=== PATIENT | male | born 1945 | race Caucasian/White ===

== ENCOUNTER 2019-03-09 16:31 | Observation (INO) | payer OTHER ==
--- OUTSIDE RECORDS SUMMARY | 2019-03-09 16:33 | XMS REPORT | Clinical Summary ---
:[address] [facility] Address [address] [place] [address] Care Team Providers Name Role Phone Mariza Kwan Primary Care Provider Unavailable Allergies No Known Allergies Medications Medication Sig Dispensed Refills Start Date End Date Status baclofen (LIORESAL) 20 Take 20 mg by 0 Active MG tablet mouth 3 (three) times daily. clopidogrel (PLAVIX) 75 Take 75 mg by 0 Active mg tablet mouth daily. HYDROcodone-acetaminophe Take 1 tablet by 0 Active n (NORCO 10-325) 10-325 mouth every 4 mg per tablet (four) hours as needed. 1-2 tablets every 4 hour prn lisinopril Take 20 mg by 0 Active (PRINIVIL,ZESTRIL) 20 MG mouth daily. tablet morphine (MS CONTIN) 100 Take 100 mg by 0 Active MG 12 hr tablet mouth 2 (two) times daily. tamsulosin (FLOMAX) 0.4 Take 0.4 mg by 0 Active mg Cp24 24 hr capsule mouth daily. topiramate (TOPAMAX) 50 Take 50 mg by 0 Active MG tablet mouth every morning. topiramate (TOPAMAX) 25 Take 25 mg by 0 Active MG capsule mouth nightly. dexlansoprazole 60 mg Take 60 mg by 0 Active capsule mouth daily. Active Problems Problem Noted Date Hyperkalemia 01/17/2013 Left kidney mass s/p left nephrectomy, pacreatectomy (tail), splenectomy 01/17 DVT (deep venous thrombosis) 01/16/2013 SOB (shortness of breath) 01/16/2013 Renal mass 12/25/2012 Hypertension Overview: BP WELL CONTROLLED WITH MEDS X 15 YRS Coronary artery disease GERD (gastroesophageal reflux disease) Stroke Overview: during brain surgery. has left sided weakness, slurred speech, left sided facial droop Immunizations Name Dates Previously Given Next Due HiB 01/03/2013 Meningococcal Polysaccharide 01/04/2013 Pneumococcal Polysaccharide (Pneumovax) 01/04/2013 Social History Tobacco Use Types Packs/Day Years Used Date Former Smoker Tobacco Cessation: Counseling Given: No Alcohol Use Drinks/Week oz/Week Comments No Sex Assigned at Date Recorded Not on file Job Start Date Occupation Industry Not on file Not on file Not on file Travel History Travel Start Travel End No recent travel history available. Last Filed Vital Signs Not on file Plan of Treatment Not on file Implants Implanted Type Area Swatcher Device Shelf Model / Identifier Expiration Serial / Date Lot Sealant,Floseal Hemostatic Matrix 10ml - [id number] Cement/F Left: MILLER [id number] / Implanted: Qty: 1 on 12/25/2012 by Roman Edwards MD iller/Ad Abdomen BIOSCIENCE / hesive FORMER FUSION [id number] MEDICAL Results Not on fileafter 03/08/2018 Insurance Payer Benefit Plan / Subscriber ID Type Phone Address Group AETNA - MEDICARE AETNA MEDICARE xxxxxxxx [facility] [phone] [address] [employer] OPEN PLAN [place] [address] [phone] (Work) Advance Directives Patient has advance care planning documents, and code status on file. For more information, please contact:[address] [phone] Code Status Date Activated Date Inactivated Comments Code ONE 01/16/2013 11:51 PM 01/22/2013 7:21 PM All possible means of support , including: cardiac massage, mechanical ventilation, and defibrillation will be used to support life. Code ONE 12/25/2012 10:45 PM 01/04/2013 10:00 PM All possible means of support , including: cardiac massage, mechanical ventilation, and defibrillation will be used to support life.
--- OUTSIDE RECORDS SUMMARY | 2019-03-09 16:34 | XMS REPORT | Summary of Care ---
:1945 Author Organization [facility] Address [address] [place] [id number] Care Team Providers Name Role Phone Genesis Arroyo Primary Care Provider Reason for Visit Reason Comments Pacemaker Check Biotronik device check q 6 months in clinic Encounter Details Date Type Department Care Team Description 01/25/2019 Nurse Visit [facility] Lauren Houston MD [address] [place] [address] [address] [place] [address] Encounter for Cardiology- [place] Visit, [facility] Nurse interrogation of [address] [place] [address] (Primary Dx) [place] [address] Allergies No Known Allergiesdocumented as of this encounter (statuses as of 01/25/2019) Medications Medication Sig Dispensed Refills Start Date End Date Status niacin 100 mg tablet Take 200 mg by 0 Active mouth at bedtime. ascorbic acid, vitamin Take 1,000 mg by 0 Active C, (VITAMIN C) 500 mg mouth daily. tablet coenzyme Q10 100 mg Take 200 mg by 0 Active softgel mouth 2 (two) times daily. PRASTERONE, DHEA, Take 50 mg by 0 Active (DHEA ORAL) mouth daily. omega-3 fatty acids Take 3,000 mg by 0 Active (FISH OIL) capsule mouth daily. melatonin 3 mg tablet Take 1 tablet by 15 tablet 0 01/12/2017 Active mouth at bedtime. lisinopril 5 mg tablet Take 1 tablet by 90 tablet 2 01/14/2017 Active mouth daily. Polyethylene Glycol Take 1 Packet by 30 Packet 5 01/26/2017 Active 3350 17 gram powder mouth as needed for Constipation. triamcinolone Apply to area(s) 454 g 1 03/23/2017 Active acetonide 0.1 % 2 (two) times ointment daily as needed for Rash. topiramate 25 mg Take 3 tablets by 90 tablet 1 02/11/2018 Active tabletIndications: mouth Seizure disorder SEE-INSTRUCTIONS. ELIQUIS 5 mg tablet TAKE 1 TABLET BY 60 tablet 5 07/25/2018 Active MOUTH TWICE DAILY zinc oxide 13 % Apply to area(s) 2 Tube 2 07/27/2018 Active creamIndications: 3 (three) times Health maintenance daily as needed alteration, Type 2 for Diaper diabetes mellitus changes or Rash. without complication, without long-term current use of insulin insulin aspart U-100 inject 5 Units 13.5 mL 1 07/27/2018 Active 100 unit/mL under the skin 3 cartridgeIndications: (three) times Health maintenance daily before alteration, Type 2 meals. diabetes mellitus without complication, without long-term current use of insulin Insulin Use as directed 5 Box 8 07/27/2018 Active Syringe-Needle, Dis Un 0.5 mL 29 gauge x 1/2" SyrgIndications: Health maintenance alteration, Type 2 diabetes mellitus without complication, without long-term current use of insulin lancets 18 gauge Use as directed 90 Each 3 08/03/2018 Active MiscIndications: Type 2 diabetes mellitus without complication, without long-term current use of insulin insulin aspart U-100 inject 5 Units 13.5 mL 1 09/28/2018 Active 100 unit/mL under the skin 3 injectionIndications: (three) times Type 2 diabetes daily before mellitus without meals. complication, without long-term current use of insulin furosemide 20 mg Take 2 tablets by 60 tablet 3 11/16/2018 Active tabletIndications: mouth every Type 2 diabetes morning and mellitus without evening. complication, without long-term current use of insulin, Essential hypertension meclizine 25 mg Take 1 tablet by 30 tablet 1 11/16/2018 Active tabletIndications: mouth 3 (three) Health maintenance times daily as alteration, Type 2 needed for diabetes mellitus Dizziness or without complication, Nausea. without long-term current use of insulin insulin detemir U-100 inject 13 Units 11.7 mL 1 11/16/2018 Active 100 unit/mL under the skin at injectionIndications: bedtime. Type 2 diabetes mellitus without complication, without long-term current use of insulin, Essential hypertension, Health maintenance alteration metoprolol succinate Take 1 tablet by 60 tablet 1 12/13/2018 Active XL 50 mg 24 hr tablet mouth 2 (two) times daily. TAMSULOSIN 0.4 mg 24 TAKE 1 CAPSULE BY 90 capsule 1 12/20/2018 Active hr capsule MOUTH DAILY atorvastatin 40 mg Take 1 tablet by 90 tablet 2 12/25/2018 Active tablet mouth at bedtime. documented as of this encounter (statuses as of 01/25/2019) Active Problems Problem Noted Date Gastroesophageal reflux disease 01/12/2017 Obesity (BMI 30-39.9) 01/12/2017 Atrial fibrillation with RVR 01/12/2017 DVT (deep venous thrombosis), left 08/02/2015 Pain and swelling of left lower leg 07/31/2015 Syncope 05/20/2015 Cerebrovascular accident 05/12/2015 Overview: Overview: during brain surgery. has left sided weakness, slurred speech, left sided facial droop Hypertension 05/12/2015 Overview: Overview: BP WELL CONTROLLED WITH MEDS X 15 YRS Chronic coronary artery disease 05/12/2015 Type 2 diabetes mellitus without complication 05/12/2015 PAF (paroxysmal atrial fibrillation) 05/12/2015 S/P arthroscopy of right knee 01/02/2015 Primary osteoarthritis of right knee 01/02/2015 Renal mass 01/17/2013 documented as of this encounter (statuses as of 01/25/2019) Immunizations Name Administration Dates Next Due Hep B, Adol or Pedi Dosage 01/03/2013 Influenza High Dose 07/27/2018, 04/21/2017, 03/13/2015 Meningococcal Vaccine 01/04/2013 Pneumococcal 13 Conjugate, PCV13 (Prevnar 03/13/2015 13) Pneumococcal Polysaccharide, PPSV23 12/19/2012 (PNEUMOVAX) Tdap 07/27/2018 documented as of this encounter Social History Tobacco Use Types Packs/Day Years Used Date Former Smoker Cigarettes 0.5 3 Smokeless Tobacco: Never Used Comments: last smoked at the age of 6 ! Alcohol Use Drinks/Week oz/Week Comments Yes very occasional etoh use Sex Assigned at Date Recorded Not on file Job Start Date Occupation Industry Not on file Not on file Not on file Travel History Travel Start Travel End No recent travel history available. documented as of this encounter Last Filed Vital Signs Not on filedocumented in this encounter Progress Notes Marah Abdalla RN - 01/25/2019 2:15 PM CDTPatient here for pacemaker check. 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 Report given to MD for review/interpretation. Patient scheduled for f/u as recommended. 86 atrial fibrillation episodes but burden only 6%, longest one day. Patient is taking eliquis for PAF. Scheduled to see Dr. Hughes after this check. documented in this encounter Plan of Treatment Date Type Specialty Care Team Description 02/15/2019 Office Visit Internal Medicine Genesis Arroyo MBBS [address] [place] [address]. [place] [address] 03/22/2019 Office Visit Cardiology Hammad Hughes MD [address] [address] 08/23/2019 Nurse Visit Cardiology Visit, Adc Nurse 11/19/2019 Office Visit Ophthalmology Kimber Herbert [address] [place] [address] Health Maintenance Due Date Last Done Comments FOOT EXAM 09/06/1961 COLONOSCOPY 09/06/1993 Zoster Recombinant Vaccine 09/06/1993 (SHINGRIX) (1 of 2) Medicare Wellness Visit 09/06/2008 URINE MICROALBUMIN 05/04/2016 05/04/2015 INFLUENZA VACCINE 02/24/2019 07/27/2018, 04/21/2017, 03/13/2015 HgA1C 05/19/2019 11/16/2018, 07/27/2018, 01/12/2017, Additional history exists CREATININE (SERUM) 09/29/2019 09/28/2018, 08/30/2018, 11/24/2017, Additional history exists LDL-C 09/29/2019 09/28/2018, 01/12/2017, 04/22/2015 EYE EXAM 11/17/2019 11/16/2018, 11/16/2018 DTaP,Tdap,and Td Vaccines (2 - 07/27/2028 07/27/2018 Td) PNEUMOCOCCAL VACCINES 65+ Completed 03/13/2015, 12/19/2012 LUNG CANCER SCREEN: Recommended Discontinued for age 55-80 with 30 + pack year history documented as of this encounter Results Not on filedocumented in this encounter Visit Diagnoses Diagnosis Encounter for interrogation of cardiac pacemaker - Primary Fitting and adjustment of cardiac pacemaker documented in this encounter Insurance Payer Benefit Plan / Subscriber ID Effective Dates Phone Address Type Group HUMANA - HUMANA [id number] 2016-Presen Medicare Adv MANAGED MEDICARE t S MEDICARE [phone] [id number] (Work) documented as of this encounter
--- OUTSIDE RECORDS SUMMARY | 2019-03-09 16:34 | XMS REPORT ---
:1945 Author Organization [facility] Address [address] [place] [address] [address] [place] [address] Care Team Providers Name Role Phone Unavailable Unavailable Unavailable Problems This patient has no known problems. Allergies, Adverse Reactions, Alerts This patient has no known allergies or adverse reactions. Medications This patient has no known medications.
--- OUTSIDE RECORDS SUMMARY | 2019-03-09 16:34 | XMS REPORT | Summary of Care ---
:1945 Author Organization [facility] Address [address] [place] [address] Care Team Providers Name Role Phone Genesis Arroyo Primary Care Provider Reason for Visit Reason Comments Refill Request Encounter Details Date Type Department Care Team Description 02/12/2019 Refill [facility] Cardiology- Hammad Hughes MD Refill Request [address], [address] [place] [address] [place] [address] Allergies No Known Allergiesdocumented as of this encounter (statuses as of 02/15/2019) Medications Medication Sig Dispensed Refills Start Date End Date Status niacin 100 mg Take 200 mg by 0 Active tablet mouth at bedtime. ascorbic acid, Take 1,000 mg 0 Active vitamin C, (VITAMIN by mouth daily. C) 500 mg tablet coenzyme Q10 100 mg Take 200 mg by 0 Active softgel mouth 2 (two) times daily. PRASTERONE, DHEA, Take 50 mg by 0 Active (DHEA ORAL) mouth daily. omega-3 fatty acids Take 3,000 mg 0 Active (FISH OIL) capsule by mouth daily. melatonin 3 mg Take 1 tablet 15 tablet 0 01/12/2017 Active tablet by mouth at bedtime. lisinopril 5 mg Take 1 tablet 90 tablet 2 01/14/2017 Active tablet by mouth daily. Polyethylene Glycol Take 1 Packet 30 Packet 5 01/26/2017 Active 3350 17 gram powder by mouth as needed for Constipation. triamcinolone Apply to 454 g 1 03/23/2017 Active acetonide 0.1 % area(s) 2 (two) ointment times daily as needed for Rash. topiramate 25 mg Take 3 tablets 90 tablet 1 02/11/2018 Active tabletIndications: by mouth Seizure disorder SEE-INSTRUCTION S. ELIQUIS 5 mg tablet TAKE 1 TABLET 60 tablet 5 07/25/2018 Active BY MOUTH TWICE DAILY zinc oxide 13 % Apply to 2 Tube 2 07/27/2018 Active creamIndications: area(s) 3 Health maintenance (three) times alteration, Type 2 daily as needed diabetes mellitus for Diaper without changes or complication, Rash. without long-term current use of insulin insulin aspart inject 5 Units 13.5 mL 1 07/27/2018 Active U-100 100 unit/mL under the skin cartridgeIndication 3 (three) times s: Health daily before maintenance meals. alteration, Type 2 diabetes mellitus without complication, [...] long-term current use of insulin insulin aspart inject 5 Units 13.5 mL 1 09/28/2018 Active U-100 100 unit/mL under the skin injectionIndication 3 (three) times s: Type 2 diabetes daily before mellitus without meals. complication, without long-term current use of insulin furosemide 20 mg Take 2 tablets 60 tablet 3 11/16/2018 Active tabletIndications: by mouth every Type 2 diabetes morning and mellitus without evening. complication, without long-term current use of insulin, Essential hypertension meclizine 25 mg Take 1 tablet 30 tablet 1 11/16/2018 Active tabletIndications: by mouth 3 Health maintenance (three) times alteration, Type 2 daily as needed diabetes mellitus for Dizziness without or Nausea. complication, without long-term current use of insulin insulin detemir inject 13 Units 11.7 mL 1 11/16/2018 Active U-100 100 unit/mL under the skin injectionIndication at bedtime. s: Type 2 diabetes mellitus without complication, without long-term current use of insulin, Essential hypertension, Health maintenance alteration TAMSULOSIN 0.4 mg TAKE 1 CAPSULE 90 capsule 1 12/20/2018 Active 24 hr capsule BY MOUTH DAILY atorvastatin 40 mg Take 1 tablet 90 tablet 2 12/25/2018 Active tablet by mouth at bedtime. morphine sulfate Take 100 mg by 0 Active (MORPHINE ORAL) mouth every morning. morphine sulfate Take 60 mg by 0 Active (MORPHINE ORAL) mouth at bedtime. METOPROLOL TAKE 1 TABLET 60 tablet 3 02/15/2019 Active SUCCINATE XL 50 mg BY MOUTH 2 24 hr tablet TIMES DAILY metoprolol Take 1 tablet 60 tablet 1 12/13/2018 Discontinued succinate XL 50 mg by mouth 2 9 24 hr tablet (two) times daily. documented as of this encounter (statuses as of 02/15/2019) Active Problems Problem Noted Date Gastroesophageal reflux [...] as of this encounter (statuses as of 02/15/2019) Immunizations Name Administration Dates Next Due Heamophilus Influenza B 01/03/2013 Hep B, Adol or Pedi Dosage 01/03/2013 [...] Signs Not on filedocumented in this encounter Plan of Treatment Date Type Specialty Care Team Description 03/22/2019 Office Visit Cardiology Hammad Hughes MD [address] [address] 04/19/2019 Office Visit Internal Medicine Genesis Arroyo MBBS [address] [place] [address]. [place] [address] 08/23/2019 Nurse Visit Cardiology Visit, Adc Nurse 11/19/2019 Office Visit Ophthalmology Kimber Herbert [address] [place] [address] Health Maintenance Due Date Last Done Comments FOOT EXAM 09/06/1961 COLONOSCOPY 09/06/1993 Zoster Recombinant Vaccine 09/06/1993 (SHINGRIX) (1 of 2) Medicare Wellness Visit 09/06/2008 URINE MICROALBUMIN 05/04/2016 05/04/2015 INFLUENZA VACCINE (#1) 2019 07/27/2018, 04/21/2017, 03/13/2015 HgA1C 05/19/2019 11/16/2018, 07/27/2018, [...] Results Not on filedocumented in this encounter Insurance Payer Benefit Plan / Subscriber ID Effective Dates Phone Address Type Group HUMANA - HUMANA [id number] 2016-Presen Medicare Adv MANAGED MEDICARE t S MEDICARE documented as of this encounter
--- OUTSIDE RECORDS SUMMARY | 2019-03-09 16:34 | XMS REPORT | Summary of Care ---
:1945 Author Organization [facility] Address [address] [place] [address] Care Team Providers Name Role Phone Genesis Arroyo Primary Care Provider Reason for Visit Reason Comments Pacemaker Check Biotronik device check q 6 months in clinic Encounter Details Date Type Department Care Team Description 01/25/2019 Nurse Visit [facility] Lauren Houston MD [address] [place] [address] [address] [place] [address] Encounter for Cardiology- [place] Visit, [facility] Nurse interrogation of [address] [place] [address], [address] (Primary Dx) [place] [address] Allergies No Known Allergiesdocumented as of this encounter (statuses as of 01/25/2019) Medications Medication Sig Dispensed Refills Start Date End Date Status niacin 100 mg tablet Take 200 mg by 0 Active mouth at bedtime. ascorbic acid, vitamin Take 1,000 mg by 0 Active C, (VITAMIN C) 500 mg mouth daily. tablet coenzyme Q10 100 mg Take 400 mg by 0 Active softgel mouth 2 [...] PM CDTPatient here for pacemaker check. 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 Report given to MD for review/interpretation. Patient scheduled for f/u as recommended. 86 atrial fibrillation episodes but burden only 6%, longest one day. Patient is taking eliquis for PAF. Scheduled to see Dr. Hughes after this check. documented in this encounter Plan of Treatment Date Type Specialty Care Team Description 01/25/2019 Office Visit Cardiology Hammad Hughes MD [address] [address] 02/15/2019 Office Visit Internal Medicine Genesis Arroyo MBBS [address] [place] [address]. [place] [address] 08/23/2019 Nurse Visit Cardiology Visit, Adc Nurse 11/19/2019 Office Visit Ophthalmology Kimber Herbert [address] [place] [address] Health Maintenance Due Date Last [...] Phone Address Type Group HUMANA - HUMANA [id number] 2016-Presen Medicare Adv MANAGED MEDICARE t S MEDICARE [phone] (Work) documented as of this encounter
--- OUTSIDE RECORDS SUMMARY | 2019-03-09 16:34 | XMS REPORT | Summary of Care ---
:1945 Author Organization [facility] Address [address] [place] [address] Care Team Providers Name Role Phone Genesis Arroyo [facility] Primary Care Provider Encounter Details Date Type Department Care Team Description 01/25/2019 Orders Only [facility] Doctor Unassigned, No [address] [facility] Name [place] [id number] [address] [place] [id number] Allergies No Known Allergiesdocumented as of this encounter (statuses as of 01/29/2019) Medications Medication Sig Dispensed Refills Start Date [...] 2 12/25/2018 Active tablet mouth at bedtime. morphine sulfate Take 100 mg by 0 Active (MORPHINE ORAL) mouth every morning. morphine sulfate Take 60 mg by 0 Active (MORPHINE ORAL) mouth at bedtime. documented as of this encounter (statuses as of 01/29/2019) Active Problems Problem Noted Date Gastroesophageal reflux [...] as of this encounter (statuses as of 01/29/2019) Immunizations Name Administration Dates Next Due Hep [...] Office Visit Internal Medicine Genesis Arroyo MBBS [address] [facility] [place] [address] 03/22/2019 Office Visit Cardiology Hammad Hughes MD [address] [place] [address] [place] [phone] 08/23/2019 Nurse Visit Cardiology Visit, Adc Nurse 11/19/2019 Office Visit Ophthalmology iKmber Herbert [address] [place] [address] [phone] Health Maintenance Due Date Last Done Comments [...] year history documented as of this encounter Procedures Procedure Name Priority Date/Time Associated Diagnosis Comments EP DEVICE CHECK Routine 01/25/2019 12:01 AM CDT documented in this encounter Results Not on filedocumented in this encounter Insurance Payer Benefit Plan / Subscriber ID Effective Dates Phone Address Type Group HUMANA - HUMANA [id number] 2016-Presen Medicare Adv MANAGED MEDICARE t FFS MEDICARE documented as of this encounter
--- OUTSIDE RECORDS SUMMARY | 2019-03-09 16:34 | XMS REPORT | Summary of Care ---
:1945 Author Organization [facility] [employer] Address [address] [place] [address] Care Team Providers Name Role Phone Genesis Arroyo Primary Care Provider Reason for Visit Reason Comments Follow-up 6mo/Same Day PMC follow up. Ekg Done today in office Encounter Details Date Type Department Care Team Description 01/25/2019 Office Visit [facility] Hammad Hughes PAF (paroxysmal atrial fibrillation) (Primary Dx); Cardiology- Daniel Watkins MD Essential hypertension; [facility] [address] Dyslipidemia; Drive, [address] Cerebrovascular accident (CVA), [place] [address] [phone] Allergies No Known Allergiesdocumented as of this encounter (statuses as of 02/17/2019) Medications Medication Sig Dispensed Refills Start Date [...] 0 Active (MORPHINE ORAL) mouth at bedtime. metoprolol Take 1 tablet 60 tablet 1 12/13/2018 Discontinued succinate XL 50 mg by mouth 2 9 24 hr tablet (two) times daily. documented as of this encounter (statuses as of 02/17/2019) Active Problems Problem Noted Date Gastroesophageal reflux [...] as of this encounter (statuses as of 02/17/2019) Immunizations Name Administration Dates Next Due Heamophilus [...] of this encounter Last Filed Vital Signs Vital Sign Reading Time Taken Comments Blood Pressure 108/70 01/25/2019 2:46 PM CDT Pulse 104 01/25/2019 2:46 PM CDT Temperature - - Respiratory Rate - - Oxygen Saturation - - Inhaled Oxygen Concentration - - Weight 111.1 kg (245 lb) 01/25/2019 2:46 PM CDT Height 185.4 cm (6' 1") 01/25/2019 2:46 PM CDT Body Mass Index 32.32 01/25/2019 2:46 PM CDT documented in this encounter Progress Notes Hammad Hughes MD - 01/25/2019 3:00 PM CDT [facility] Cardiology Consult Note Patient: Abhay Cotter Date of : 1945 Primary Care Physician: Genesis Arroyo CHIEF COMPLAINT: Follow up History of Present Illness: Abhay Cotter is a 73-year-old male patient who presented to the office to follow up for CAD and PAF. Patient is currently here by with his son. Patient is on a wheelchair. No new cardiac complaints noted. BOSWELL NYHA Class 2-3. Compliant with medications as per the son. Currently on Eliquis. No bleeding or side effects reported. His prior cardiac history significant for underlying history of atrial fibrillation status post cardioversion and evidence of sinus node dysfunction or AV conduction disease on pacemaker. No history of exertional chest pain. No chest pain at rest. No PND or orthopnea. No pedal edema. No exertional palpitations or palpitations at rest. No syncopal attacks. In 2012, he was noted to have atrial fibrillation underwent cardioversion and he was put on Pradaxa for some time. It seems talking to the patient and his son that is Pradaxa was changed since it was interacting with one of his medicine that he was taking at the time. Currently he is not on any anticoagulation. He also does history of TIA around that time also. This MRI that was recently done did notshow any evidence of stroke other than the previous episode that he had . Previous Cardiac Studies: EKG 11.24.2017 done in the office today was reviewed which atrial paced ventricle paced rhythm. TTE Preserved LV systolic and diastolic function. Biatrial enlargement. Mild pulmonary hypertension. DSE Normal LV systolic function at baseline. Normal hemodynanmic response. Adequate inotropic response. Adequate chronotropic response. This was a negative stress echocardiogram for inducible ischemic wall motion abnormality. At peak stress, functional rate-related tachycardia with aberrant conduction (RBBB and occasional NSVT), maximum HR 141.. Echo 12/2017 Interpretation Summary A two-dimensional transthoracic echocardiogram with M-mode and Doppler was performed. Compared to prior study, changes are noted. There is mild concentric left ventricular hypertrophy. The overall left ventricular function is normal. The right ventricular systolic function is mildly reduced. The left atrium is mildly dilated. Insufficient Tricuspid regurgitation jet to estimate RVSP. Device 12/2017 Arrhythmias: Atrial burden: 8% 9894 mode switches. Most recent: 12/31/2017. Longest: 10/10/2017: 7 days. Normal functioning device and leads. ECG Atrial fibrillation with rapid ventricular response Nonspecific ST abnormality Abnormal ECG PAST MEDICAL HISTORY Past Medical History: Diagnosis Date Atrial fibrillation 2012 s/p ablation Chronic pain disorder GERD (gastroesophageal reflux disease) H/O splenectomy History of DVT of lower extremity RLE ~2012 HTN (hypertension) Hydrocephalus 1970 2/2 a fall Seizure disorder Stroke 1970 2/2 to a neurological procedure for hydrocephalus Past Surgical History: Procedure Laterality Date CEREBROSPINAL FLUID SHUNT INSERTION 1970 CHOLECYSTECTOMY NEPHRECTOMY 2012 PANCREATECTOMY 2012 partial SPLENECTOMY 2013 STRABISMUS SURGERY (SHX) Family History Problem Relation Age of Onset Heart Mother chf Heart Mother HTN Cancer Father lung cancer SOCIAL HISTORY Social History Socioeconomic History Marital status: Spouse name: Not on file Number of children: Not on file Years of education: Not on file Highest education level: Not on file Occupational History Not on file Social Needs Financial resource strain: Not on file Food insecurity: Worry: Not on file Inability: Not on file Transportation needs: Medical: Not on file Non-medical: Not on file Tobacco Use Smoking status: Former Smoker Packs/day: 0.50 Years: 3.00 Pack years: 1.50 Types: Cigarettes Smokeless tobacco: Never Used Tobacco comment: last smoked at the age of 6 ! Substance and Sexual Activity Alcohol use: Yes Comment: very occasional etoh use Drug use: No Sexual activity: Not on file Lifestyle Physical activity: Days per week: Not on file Minutes per session: Not on file Stress: Not on file Relationships Social connections: Talks on phone: Not on file Gets together: Not on file Attends jew service: Not on file Active member of club or organization: Not on file Attends meetings of clubs or organizations: Not on file Relationship status: Not on file Intimate partner violence: Fear of current or ex partner: Not on file Emotionally abused: Not on file Physically abused: Not on file Forced sexual activity: Not on file Other Topics Concern Not on file Social History Narrative , lived with son in [place]. 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 ALLERGIES No Known Allergies MEDICATIONS Patient's Medications START taking these medications No medications on file CONTINUE taking these medications which have NOT CHANGED ASCORBIC ACID, VITAMIN C, (VITAMIN C) 500 MG TABLET Take 1,000 mg by mouth daily. ATORVASTATIN 40 MG TABLET Take 1 tablet by mouth at bedtime. COENZYME Q10 100 MG SOFTGEL Take 200 mg by mouth 2 (two) times daily. ELIQUIS 5 MG TABLET TAKE 1 TABLET BY MOUTH TWICE DAILY FUROSEMIDE 20 MG TABLET Take 2 tablets by mouth every morning and evening. INSULIN ASPART U-100 100 UNIT/ML CARTRIDGE inject 5 Units under the skin 3 ( three) times daily before meals. INSULIN ASPART U-100 100 UNIT/ML INJECTION inject 5 Units under the skin 3 ( three) times daily before meals. INSULIN DETEMIR U-100 100 UNIT/ML INJECTION inject 13 Units under the skin at bedtime. INSULIN SYRINGE-NEEDLE, DIS UN 0.5 ML 29 GAUGE X 1/2" SYRG Use as directed LANCETS 18 GAUGE MISC Use as directed LISINOPRIL 5 MG TABLET Take 1 tablet by mouth daily. MECLIZINE 25 MG TABLET Take 1 tablet by mouth 3 (three) times daily as needed for Dizziness or Nausea. MELATONIN 3 MG TABLET Take 1 tablet by mouth at bedtime. MORPHINE SULFATE (MORPHINE ORAL) Take 100 mg by mouth every morning. MORPHINE SULFATE (MORPHINE ORAL) Take 60 mg by mouth at bedtime. NIACIN 100 MG TABLET Take 200 mg by mouth at bedtime. OMEGA-3 FATTY ACIDS (FISH OIL) CAPSULE Take 3,000 mg by mouth daily. POLYETHYLENE GLYCOL 3350 17 GRAM POWDER Take 1 Packet by mouth as needed for Constipation. PRASTERONE, DHEA, (DHEA ORAL) Take 50 mg by mouth daily. TAMSULOSIN 0.4 MG 24 HR CAPSULE TAKE 1 CAPSULE BY MOUTH DAILY TOPIRAMATE 25 MG TABLET Take 3 tablets by mouth SEE-INSTRUCTIONS. TRIAMCINOLONE ACETONIDE 0.1 % OINTMENT Apply to area(s) 2 (two) times daily as needed for Rash. ZINC OXIDE 13 % CREAM Apply to area(s) 3 (three) times daily as needed for Diaper changes or Rash. START taking Modified Medications as Prescribed Modified Medication Previous Medication METOPROLOL SUCCINATE XL 50 MG 24 HR TABLET metoprolol succinate XL 50 mg 24 hr tablet TAKE 1 TABLET BY MOUTH 2 TIMES DAILY Take 1 tablet by mouth 2 (two) times daily. STOP taking these medications No medications on file REVIEW OF SYSTEMS: Comprehensive 10-system review was conducted and were negative except for what' s noted in the HPI. The following systems were reviewed: Constitutional, cardiovascular, respiratory, gastrointestinal, genitourinary, musculoskeletal, neurologic, psychiatric, endocrinological, and hematological. PHYSICAL EXAMINATION: Vitals: 01/25/19 1446 BP: 108/70 BP Location: Right arm Patient Position: Sitting BP CUFF SIZE: Adult Large Pulse: 104 Weight: 245 lb (111.1 kg) Height: 6' 1" (1.854 m) General: no apparent distress HEENT: normocephalic atraumatic Neck: supple, no lymphadenopathy, no bruits, no JVD Lungs: clear to auscultation bilaterally. No wheezes or rhonchi. Cardio: Iregular rate and rhythm, S1&S2 normal, no murmurs, rubs or gallops Abdomen: soft; non-tender; non-distended; normoactive bowel sounds. : not examined Rectal: not examined Extremities: no clubbing, cyanosis. Bilateral leg edema. Skin: no rashes, no visible lesions. Neuro: no gross focal deficits ASSESSMENT/PLAN 1. PAF (paroxysmal atrial fibrillation) 2. Essential hypertension 3. Dyslipidemia 4. Cerebrovascular accident (CVA), unspecified mechanism Clinically stable from cardiac stand point. No new cardiac complaints noted. ECG done in the office was reviewed with him and his son. Reviewed device check. PAF: on Toprol XL 50 mg BiD. If BP acceptable > 110/70, increase Toprol XL 75 mg BiD. On Eliquis 5 mg BiD. Dyslipidemia: on Lipitor 40 mg daily. Chronic diastolic HF: on lasix 40 BiD. HTN: on lisinopril 5 daily. T2DM: Follows PCP Follow up in 6 week. Rpt ECG at visit. If still in persistent atrial fibrillation, then may be revisit [facility] after stress test. Patient's diease process and its evaluation and treatment were discussed. We discussed each of for cardio vascular-related problems and discussed long-term goals and expectations for the each problem.I reviewed each of the cardiac medications in detail. Reviewed the medication with patient in detail recommended to continue taking the current medications without further changes other than changes mentioned above. Recommended goal BP < 140/90 consistently, LDL << 100, HbA1c < 6.5. Recommended, explained and stressed the importance of healthy eating habits and exercises and lifestyle modifications Follow up as planned is predicated on symptoms stability and/or acceptable test results. Patient is urged to call in sooner should problems arise or if there is no improvement in cardiac symptoms. ER warning signs and symptoms explained and patient verbalized understanding. My diagnostic impression and treatment plans were discussed at length with the patient and family member present. All side effects as well as drug-drug interactions and risks discussed at length. Ample opportunity was offered and encouraged to ask questions during this visit and patient and his son appreciated the answers given by me and verbzalised statisfcation in the answers given. We reviewed the [place] [employer] recommendations for reduction of overall cardio vascular risk. The importance of monitoring the blood pressure carefully both at home on regular basis along with other physicians appointment was stressed in detail. In addition we discussed target LDL levels for optimal risk reduction. It was advised that to daily physical activity be performed with 30 minutes of sustained exercise for both cardio vascular fitness and improvement for generalized medical health and well-being. Thank you for allowing us to participate in the care of Abhay Cotter. If you have any questions or concerns please feel free to call our office at [phone]. I would be happy to be of further assistance for Abhay Cotter wellbeing. Jaron Hughes MD Pecan Huller, Division of Cardiology [facility] documented in this encounter Plan of Treatment Date Type Specialty Care Team Description 03/22/2019 Office Visit Cardiology Hammad Hughes MD [address] [place] [address] [place] [phone] 04/19/2019 Office Visit Internal Medicine Genesis Arroyo MBBS [address] [place] [address]. [place] [phone] 08/23/2019 Nurse Visit Cardiology Visit, Adc Nurse 11/19/2019 Office Visit Ophthalmology Kimber Herbert [address] [place] [address] Health Maintenance Due Date Last [...] Procedure Name Priority Date/Time Associated Diagnosis Comments EKG-12 LEAD Routine 01/25/2019 2:51 PM CDT documented in this encounter Results Not on filedocumented in this encounter Visit Diagnoses Diagnosis PAF (paroxysmal atrial fibrillation) - Primary Atrial fibrillation Essential hypertension Unspecified essential hypertension Dyslipidemia Other and unspecified hyperlipidemia Cerebrovascular accident (CVA), unspecified mechanism documented in this encounter Insurance Payer Benefit Plan / Subscriber ID Effective Dates Phone Address Type Group HUMANA - HUMANA [id number] 2016-Presen Medicare Adv MANAGED MEDICARE t FFS MEDICARE [phone] [id number] (Work) documented as of this encounter
--- OUTSIDE RECORDS SUMMARY | 2019-03-09 16:35 | XMS REPORT | Summary of Care ---
:1945 Author Organization [facility] Address [address] [place] [address] Care Team Providers Name Role Phone Genesis Arroyo Primary Care Provider Reason for Visit Reason Comments Pacemaker Check Biotronik device check q 6 months in clinic Encounter Details Date Type Department Care Team Description 01/25/2019 Nurse Visit [facility] Lauren [place] MD [address] [place] [address] [address] [place] [address] Encounter for interrogation of cardiac pacemaker (Primary Dx ); Cardiology- [place] Visit, Adc Nurse PAF (paroxysmal atrial fibrillation); [address] [place] [address], [address] [place] [address] Allergies No Known Allergiesdocumented as of this encounter (statuses as of 03/08/2019) Medications Medication Sig Dispensed Refills Start Date [...] 12/25/2018 Active tablet by mouth at bedtime. metoprolol Take 1 tablet 60 tablet 1 12/13/2018 Discontinued succinate XL 50 mg by mouth 2 9 24 hr tablet (two) times daily. documented as of this encounter (statuses as of 03/08/2019) Active Problems Problem Noted Date Gastroesophageal reflux [...] as of this encounter (statuses as of 03/08/2019) Immunizations Name Administration Dates Next Due Heamophilus [...] on filedocumented in this encounter Progress Notes Hammad Hughes MD - 01/25/2019 2:15 PM CDTEP Cardiac Device Check Evaluation performed: Interrogation and programing dual lead PPM Device: Biotronik Eluna 8 DRT Mode: DDD 60-130 bpm Battery: 7 yrs Atrial Lead: Sensin.2 mV Impedance: 526 Ohms A pacing % 79 % Right Ventricular Lead: Sensin mV Impedance: 702 Ohms Threshold: 0.8 V @ 0.4 ms V pacing % 2 % Arrhythmias: 86 atrial fibrillation episodes burden 6% Recommendations: Normal functioning device and leads. Follow up in 6 months. Jaron Hughes MD [employer], Division of Cardiology [facility] Marah giordano RN - 01/25/2019 2:15 PM CDTPatient here for pacemaker check. Biotronik signs sales representative at bedside and performed download. [...] Hughes MD [address] [place] [address] [place] [phone] 04/19/2019 Office Visit Internal Medicine Genesis Arroyo MBBS [address] [place] [address]. [place] [address] 08/23/2019 Nurse Visit Cardiology Visit, Adc Nurse 11/19/2019 Office Visit Ophthalmology Kimber Herbert [address] [place] [address] [phone] Health Maintenance Due Date Last Done Comments [...] Primary Fitting and adjustment of cardiac pacemaker PAF (paroxysmal atrial fibrillation) Atrial fibrillation Chronic coronary artery disease Coronary atherosclerosis of unspecified type of vessel, [place] or graft documented in this encounter Insurance Payer Benefit Plan / Subscriber ID Effective Dates Phone Address Type Group HUMANA - HUMANA [id number] 2016-Presen Medicare Adv MANAGED MEDICARE t FFS MEDICARE (Work) documented as of this encounter
--- OUTSIDE RECORDS SUMMARY | 2019-03-09 16:35 | XMS REPORT | Summary of Care ---
:1945 Author Organization [facility] Address [address] [place] [address] Care Team Providers Name Role Phone Genesis Arroyo [facility] Primary Care Provider Encounter Details Date Type Department Care Team Description 02/21/2019 Orders Only [facility] Doctor Unassigned, No [address] [facility] [place] [place] Name [place] [phone] [place] [phone] Allergies No Known Allergiesdocumented as of this encounter (statuses as of 02/27/2019) Medications Medication Sig Dispensed Refills Start Date [...] hypertension, Health maintenance alteration TAMSULOSIN 0.4 mg 24 TAKE 1 CAPSULE BY 90 capsule 1 12/20/2018 Active hr capsule MOUTH DAILY atorvastatin 40 mg Take 1 tablet by 90 tablet 2 12/25/2018 Active tablet mouth at bedtime. morphine sulfate Take 100 mg by 0 Active (MORPHINE ORAL) mouth every morning. morphine sulfate Take 60 mg by 0 Active (MORPHINE ORAL) mouth at bedtime. METOPROLOL SUCCINATE TAKE 1 TABLET BY 60 tablet 3 02/15/2019 Active XL 50 mg 24 hr tablet MOUTH 2 TIMES DAILY documented as of this encounter (statuses as of 02/27/2019) Active Problems Problem Noted Date Gastroesophageal reflux [...] as of this encounter (statuses as of 02/27/2019) Immunizations Name Administration Dates Next Due Heamophilus [...] Hughes MD [address] [place] [address] [place] [phone] 04/19/2019 Office Visit Internal Medicine Genesis Arroyo MBBS [address] [place] [address]. [place] [phone] 08/23/2019 Nurse Visit Cardiology Visit, Adc Nurse 11/19/2019 Office Visit Ophthalmology Kimber Herbert [address] [place] [address] Health Maintenance Due Date Last [...] Procedure Name Priority Date/Time Associated Diagnosis Comments MEDICATION CORRESPONDENCE Routine 02/21/2019 12:01 AM CDT documented in this encounter Results Not on filedocumented in this encounter Insurance Payer Benefit Plan / Subscriber ID Effective Dates Phone Address Type Group HUMANA - HUMANA [id number] 2016-Presen Medicare Adv MANAGED MEDICARE t FFS MEDICARE documented as of this encounter
--- OUTSIDE RECORDS SUMMARY | 2019-03-09 16:35 | XMS REPORT | Summary of Care ---
:1945 Author Organization [facility] Address [address] [place] [address] Care Team Providers Name Role Phone Genesis Arroyo Primary Care Provider Reason for Visit Reason Comments Assessment Encounter Details Date Type Department Care Team Description 03/07/2019 Telephone [facility] Internal Genesis Arroyo MBBS Assessment Medicine- [address] [place] [address] [address], [address] [phone] [facility] [place] [address] Allergies No Known Allergiesdocumented as of this encounter (statuses as of 03/07/2019) Medications Medication Sig Dispensed Refills Start Date [...] as of this encounter (statuses as of 03/07/2019) Active Problems Problem Noted Date Gastroesophageal reflux [...] as of this encounter (statuses as of 03/07/2019) Immunizations Name Administration Dates Next Due Heamophilus [...] Hughes MD [address] [place] [address] [place] [phone] 04/19/2019 Office Visit Internal Medicine Genesis Arroyo MBBS [address] [place] [address]. [place] [address] 08/23/2019 Nurse Visit Cardiology Visit, Adc Nurse 11/19/2019 Office Visit Ophthalmology Kimber Herbert [address] [place] [address] Health Maintenance Due Date Last [...] Phone Address Type Group HUMANA - HUMANA [id number] 2016-Presen Medicare Adv MANAGED MEDICARE t FFS MEDICARE documented as of this encounter
[2019-03-09] MEDS ORDERED: FENTANYL CITR 100 MCG/2 ML ONE (17:05)
--- NOTE | 2019-03-09 17:43 | RAD REPORT ---
EXAM DESCRIPTION: RAD - Pelvis - 03/09/2019 5:30 pm CLINICAL HISTORY: Pelvic pain status post injury FINDINGS: No fracture or dislocation is seen. Osteoporosis If the patient continues to have symptoms to suggest an occult fracture then MRI would be recommended
--- NOTE | 2019-03-09 17:44 | RAD REPORT ---
EXAM DESCRIPTION: RAD - Hip Left 2 View - 03/09/2019 5:30 pm CLINICAL HISTORY: Left hip pain status post injury FINDINGS: No fracture or dislocation is seen. Osteoporosis If the patient continues to have symptoms to suggest an occult fracture MRI would be recommended.
--- NOTE | 2019-03-09 18:00 | ER ---
Nurse's Notes [facility] Name: Abhay Cotter Age: 73 yrs Sex: Male : 1945 Arrival Date: 03/09/2019 Time: 16:35 Bed 5 Private MD: Diagnosis: Hematoma Left gluteal muscle;Intractable Pain Presentation: 03/09 16:27 Presenting complaint: EMS states: s/p fall about 2-3 days ago; was seen at a local sv clinic and xrays done, fx right hand and pelvis xray were done but unknown results. Reports increased pain to the left hip. Pt uses a wheelchair to get around at home. 16:35 Transition of care: patient was not received from another setting of care. Onset of tw2 symptoms was March 09, 2019. Risk Assessment: Do you want to hurt yourself or someone else? Patient reports no desire to harm self or others. Initial Sepsis Screen: Does the patient meet any 2 criteria? No. Patient's initial sepsis screen is negative. Does the patient have a suspected source of infection? No. Patient's initial sepsis screen is negative. Care prior to arrival: Placed on backboard. 16:35 Acuity: SAWYER 3 tw2 16:35 Method Of Arrival: EMS: [facility] tw2 Historical: - Allergies: 16:39 No Known Drug Allergies; tw2 - Home Meds: 16:44 oxymorphone 5 mg oral tab [Active]; MS contin ER 100 mg am and 60 mg pm [Active]; sv Eliquis 5 mg oral tab [Active]; atorvastatin 40 mg oral tab [Active]; Lasix 20 mg Oral tab QID [Active]; metoprolol succinate 50 mg oral Tb24 [Active]; - PMHx: 16:44 Seizures; Diabetes - IDDM; Back pain; sv - PSHx: 16:39 Cholecystectomy; KIDNEY REMOVED; SPLEEN REMOVED; BRAIN SX; "Chunk of pancreas removed"; tw2 16:44 eye; sv - Immunization history:: Adult Immunizations up to date. - Ebola Screening: : Patient denies travel to an Ebola-affected area in the 21 days before illness onset. - Social history:: Smoking status: unknown. Screenin:35 Abuse screen: Denies threats or abuse. Nutritional screening: No deficits noted. tw2 Tuberculosis screening: No symptoms or risk factors identified. Fall Risk Secondary diagnosis (15 points) seizures, impaired mobility, CVA. Primary Survey: 16:39 NO uncontrolled hemorrhage observed. Breathing/Chest: Respiratory pattern: regular, tw2 Respiratory effort: spontaneous, unlabored, Breath sounds: clear, bilaterally. Chest inspection: symmetrical rise and fall of the chest. Circulation: Heart tones present. Disability Alert. Exposure/Environment: All clothing and personal items were removed. Forensic evidence collection is not deemed to be indicated at this time. Items placed in patient belonging bag. There is no evidence of uncontrolled external bleeding. A warming method has been applied: A warm blanket has been provided to the patient. Assessment: 16:37 General: Appears in no apparent distress. Behavior is calm, cooperative, appropriate tw2 for age. Pain: Complains of pain in LEFT hip. Neuro: Level of Consciousness is awake, alert, obeys commands, Oriented to person, place, time, situation. EENT: No signs and/or symptoms were reported regarding the EENT system. Cardiovascular: Heart tones S1 S2 Patient's skin is warm and dry. Respiratory: Airway is patent Respiratory effort is even, unlabored, Respiratory pattern is regular, symmetrical, Breath sounds are clear bilaterally. GI: No signs and/or symptoms were reported involving the gastrointestinal system. Abdomen is round non-distended, Bowel sounds present X 4 quads. : No signs and/or symptoms were reported regarding the genitourinary system. Derm: Skin is fragile, is thin, Skin is dry. Musculoskeletal: Range of motion: limited in left shoulder and left elbow. 16:48 Pain: Complains of pain in right hand. tw2 17:51 Reassessment: Patient appears in no apparent distress at this time. No changes from sv previously documented assessment. Patient and/or family updated on plan of care and expected duration. Pain level reassessed. Patient is alert, oriented x 3, equal unlabored respirations, skin warm/dry/pink. Pt refusing splint d/t not being able to eat or do anything else since he is right hand dominant. Informed Dr Mondragon. 18:15 Reassessment: Dr Mondragon and I are at bedside and he is speaking with the pt and sv family. Pt states that he has 15 steps to go up to his house and he is not going to be able to do that because of the pain. Pt now states that he is having lower abd pain. 18:25 Reassessment: Pt and family at the bedside stated that they would like to find out why sv exactly he is having this pain. They stated that Dr Mondragon was just in the room but they want to know why the pain. Informed Dr Mondragon of family concerns. 20:23 Reassessment: No changes from previously documented assessment. Patient and/or family tl1 updated on plan of care and expected duration. Pain level reassessed. Patient is alert, oriented x 3, equal unlabored respirations, skin warm/dry/pink. Patient states symptoms have not improved. 23:49 Reassessment: Patient and/or family updated on plan of care and expected duration. Pain tl1 level reassessed. General: Appears in no apparent distress. Behavior is calm, cooperative, appropriate for age. Pain: Complains of pain in right wrist and left elbow and left shoulder and left hip. Neuro: Level of Consciousness is awake, alert, obeys commands, Oriented to person, place, time, situation. Cardiovascular: Denies chest pain. Respiratory: Airway is patent Breath sounds are clear bilaterally. GI: No signs and/or symptoms were reported involving the gastrointestinal system. Abdomen is round non-distended, Bowel sounds present X 4 quads. Abd is soft and non tender. : No signs and/or symptoms were reported regarding the genitourinary system. EENT: No signs and/or symptoms were reported regarding the EENT system. Musculoskeletal: Range of motion: limited in left shoulder, left elbow and left hip. Vital Signs: 16:36 BP 124 / 66; Pulse 67; Resp 17; Temp 98; Pulse Ox 96% on R/A; Weight 97.52 kg; Height 6 sv ft. 1 in. (185.42 cm); 17:08 BP 130 / 84; Pulse 111; Resp 18; Pulse Ox 95% ; sv 20:23 BP 109 / 65; Pulse 104; Resp 19; Temp 97.9; Pulse Ox 96% on R/A; Pain 6/10; tl1 22:39 BP 107 / 69; Pulse 95; Resp 16; Pulse Ox 95% on R/A; Pain 5/10; tl1 23:48 BP 112 / 72; Pulse 94; Resp 18; Temp 98; Pulse Ox 96% on R/A; Pain 3/10; tl1 16:36 Body Mass Index 28.37 (97.52 kg, 185.42 cm) sv [place] Coma Score: 16:36 Eye Response: spontaneous(4). Verbal Response: oriented(5). Motor Response: obeys tw2 commands(6). Total: 15. Trauma Score (Adult): 16:36 Eye Response: spontaneous(1); Verbal Response: oriented(1); Motor Response: obeys tw2 commands(2); Systolic BP: > 89 mm Hg(4); Respiratory Rate: 10 to 29 per min(4); Madelin Score: 15; Trauma Score: 12 ED Course: 16:35 Patient arrived in ED. tw2 16:35 Lv Mondragon MD is Attending Physician. kdr 16:35 Triage completed. tw2 16:35 Bed in low position. Call light in reach. Warm blanket given. tw2 16:37 Lalitha Hansen RN is Primary Nurse. tw2 16:38 Arm band placed on. tw2 16:39 Primary Nurse role handed off by Lalitha Hansen RN sv 16:39 Melanie Carrillo RN is Primary Nurse. sv 16:39 Patient maintains SpO2 saturation greater than 95% on room air. tw2 16:40 Awaiting ED provider evaluation. sv 17:23 X-ray(s) taken. sv 18:06 Rui wrap to right wrist. mb4 18:40 Missed attempt(s): 20 gauge in left forearm. Bleeding controlled, band aid applied, sv catheter tip intact. 18:45 Initial lab(s) drawn, by nm, sent to lab. Inserted saline lock: 22 gauge in right sv antecubital area, using aseptic technique. Blood collected. Flushed right antecubital with 5 ml normal saline. 18:53 Awaiting lab results, Awaiting CT Scan, Awaiting: prior to discharge. tw2 19:03 Radiology exam delayed due to lab results not completed at this time. (BUN/Creatinine). bq 19:03 Report given to JOSE ALFREDO Herron and JOSE ALFREDO Andres. tw2 19:07 Dax Zavaleta PA is PHCP. jr8 19:42 CT completed. Patient moved back from CT. bq 21:26 Jennifer Young MD is Hospitalizing Provider. jr8 23:35 No provider procedures requiring assistance completed. Patient admitted, IV remains in tl1 place. Administered Medications: 17:07 Drug: fentaNYL (PF) 50 mcg Route: IM; Site: right deltoid; tw2 18:55 Follow up: Response: No adverse reaction; Marked relief of symptoms; Pain is decreased; tl1 RASS: Alert and Calm (0) 18:53 Drug: NS 0.9% 500 ml Route: IV; Rate: bolus; Site: right antecubital; tw2 19:00 Follow up: IV Status: Completed infusion; IV Intake: 500ml tl1 21:30 Drug: Dilaudid 0.5 mg {Note: RASC 1.} Route: IVP; Infused Over: 2 mins; Site: right tl1 antecubital; 23:35 Follow up: Response: No adverse reaction; Marked relief of symptoms; Pain is decreased; tl1 RASS: Alert and Calm (0) Intake: 19:00 IV: 500ml; Total: 500ml. tl1 Outcome: 17:59 Discharge ordered by . kdr 21:26 Decision to Hospitalize by Provider. jr8 23:34 Admitted to Med/surg via stretcher, with chart, Report called to Vandana VELIZ tl1 23:34 Condition: stable 23:34 Instructed on the need for admit. 03/10 00:02 Patient left the ED. tl1 Signatures: Melanie Carrillo, RN Lv Acevedo MD MD kdr Quilty, Betty bq Roszak, Josh, PA PA jr8 Germaine Rojo RN RN tl1 Lalitha Hansen RN RN tw2 Nae Hodges 4 Corrections: (The following items were deleted from the chart) 03/09 16:44 16:36 BP 124 / 66; Pulse 67bpm; Resp 17bpm; Pulse Ox 96% RA; tw2 sv 16:48 16:37 Musculoskeletal: Range of motion: limited in left hip tw2 tw2 18:29 18:15 Reassessment: Pt and family at the bedside stated that they would like to find sv out why exactly he is having this pain. They stated that Dr Mondragon was just in the room but they want to know why the pain. Informed Dr Mondragon of family concerns. sv
--- NOTE | 2019-03-09 18:01 | EDPHYS ---
Physician Documentation [facility] Name: Abhay Cotter Age: 73 yrs Sex: Male : 1945 Arrival Date: 03/09/2019 Time: 16:35 Bed 5 Private MD: ED Physician Lv Mondragon HPI: 03/09 16:59 This 73 yrs old Male presents to ER via EMS with complaints of Fall Injury, kdr Hip Pain. 16:59 Details of fall: The patient fell from an upright position, while walking. Onset: The kdr symptoms/episode began/occurred 2 day(s) ago. Associated injuries: The patient sustained Right hand and left hip. Severity of symptoms: At their worst the symptoms were mild, moderate, just prior to arrival, in the emergency department the symptoms are actually worse. The patient has not experienced similar symptoms in the past. The patient has been recently seen by a physician:. The pateint fell several days ago and films done at this hospital. He as called today and told that he had fractures of the right hand. Also, on his way home after getting the initial set of x-rays, he moved his leg and had immediate pain in the left hip. The pain has become steadily worse over time and now has trouble moving his left leg due to the pain in her . Historical: - Allergies: 16:39 No Known Drug Allergies; tw2 - Home Meds: 16:44 oxymorphone 5 mg oral tab [Active]; MS contin ER 100 mg am and 60 mg pm [Active]; sv Eliquis 5 mg oral tab [Active]; atorvastatin 40 mg oral tab [Active]; Lasix 20 mg Oral tab QID [Active]; metoprolol succinate 50 mg oral Tb24 [Active]; - PMHx: 16:44 Seizures; Diabetes - IDDM; Back pain; sv - PSHx: 16:39 Cholecystectomy; KIDNEY REMOVED; SPLEEN REMOVED; BRAIN SX; "Chunk of pancreas removed"; tw2 16:44 eye; sv - Immunization history:: Adult Immunizations up to date. - Ebola Screening: : Patient denies travel to an Ebola-affected area in the 21 days before illness onset. - Social history:: Smoking status: unknown. ROS: 16:59 Constitutional: Negative for fever, chills, and weight loss, Eyes: Negative for injury, kdr pain, redness, and discharge, ENT: Negative for injury, pain, and discharge, Neck: Negative for injury, pain, and swelling, Cardiovascular: Negative for chest pain, palpitations, and edema, Respiratory: Negative for shortness of breath, cough, wheezing, and pleuritic chest pain, Abdomen/GI: Negative for abdominal pain, nausea, vomiting, diarrhea, and constipation, Back: Negative for injury and pain, : Negative for injury, bleeding, discharge, and swelling, Skin: Negative for injury, rash, and discoloration, Neuro: Negative for headache, weakness, numbness, tingling, and seizure activity. Psych: Negative for depression, anxiety, suicide ideation, homicidal ideation, and hallucinations, Allergy/Immunology: Negative for hives, rash, and allergies, Endocrine: Negative for neck swelling, polydipsia, polyuria, polyphagia, and marked weight changes, Hematologic/Lymphatic: Negative for swollen nodes, abnormal bleeding, and unusual bruising. 16:59 MS/extremity: Positive for pain and swelling of the right hand and pain in the left hip. Exam: 16:59 Constitutional: This is a well developed, well nourished patient who is awake, alert, kdr and in no acute distress. Head/Face: Normocephalic, atraumatic. Eyes: Pupils equal round and reactive to light, extra-ocular motions intact. Lids and lashes normal. Conjunctiva and sclera are non-icteric and not injected. Cornea within normal limits. Periorbital areas with no swelling, redness, or edema. Neck: Trachea midline, no thyromegaly or masses palpated, and no cervical lymphadenopathy. Supple, full range of motion without nuchal rigidity, or vertebral point tenderness. No Meningismus. Chest/axilla: Normal chest wall appearance and motion. Nontender with no deformity. No lesions are appreciated. Cardiovascular: Regular rate and rhythm with a normal S1 and S2. No gallops, murmurs, or rubs. Normal PMI, no JVD. No pulse deficits. Respiratory: Lungs have equal breath sounds bilaterally, clear to auscultation and percussion. No rales, rhonchi or wheezes noted. No increased work of breathing, no retractions or nasal flaring. Abdomen/GI: Soft, non-tender, with normal bowel sounds. No distension or tympany. No guarding or rebound. No evidence of tenderness throughout. 16:59 Musculoskeletal/extremity: Extremities: grossly normal except: noted in the left hand: noted in the left leg: ROM: Vital Signs: 16:36 BP 124 / 66; Pulse 67; Resp 17; Temp 98; Pulse Ox 96% on R/A; Weight 97.52 kg; Height 6 sv ft. 1 in. (185.42 cm); 17:08 BP 130 / 84; Pulse 111; Resp 18; Pulse Ox 95% ; sv 20:23 BP 109 / 65; Pulse 104; Resp 19; Temp 97.9; Pulse Ox 96% on R/A; Pain 6/10; tl1 22:39 BP 107 / 69; Pulse 95; Resp 16; Pulse Ox 95% on R/A; Pain 5/10; tl1 23:48 BP 112 / 72; Pulse 94; Resp 18; Temp 98; Pulse Ox 96% on R/A; Pain 3/10; tl1 16:36 Body Mass Index 28.37 (97.52 kg, 185.42 cm) sv Madelin Coma Score: 16:36 Eye Response: spontaneous(4). Verbal Response: oriented(5). Motor Response: obeys tw2 commands(6). Total: 15. Trauma Score (Adult): 16:36 Eye Response: spontaneous(1); Verbal Response: oriented(1); Motor Response: obeys tw2 commands(2); Systolic BP: > 89 mm Hg(4); Respiratory Rate: 10 to 29 per min(4); Madelin Score: 15; Trauma Score: 12 MDM: 17:59 Patient medically screened. kdr 18:26 Data reviewed: vital signs, nurses notes, lab test result(s), radiologic studies. kdr Counseling: I had a detailed discussion with the patient and/or guardian regarding: the historical points, exam findings, and any diagnostic results supporting the discharge/admit diagnosis, lab results, radiology results. ED course: The patient claimed that he was unable to sit in a chair or on the bedside due to pain in the left hip. He also states that he will be unable to get into his home because he has to go up 15 stairs. During the course of our conversation about discharge, he also began to c/o pain to the LLQ of his abdomen. He had not c/o of this before now during this visit. 20:16 ED course: Discussed with family and patient that he has a gluteal hematoma. No acute jr8 intraabdominal process and no fracture of the hip. Discussed with family that patient needs to rest and continue pain management at home as we cannot give anything stronger. If pain were to worsen or he were to feel weak or dizzy to come back for further evaluation . 03/09 18:25 Order name: CBC with Diff kdr 03/09 18:25 Order name: Chem 7 kdr 03/09 16:55 Order name: Hip Left 2 View XRAY kdr 03/09 16:55 Order name: Pelvis XRAY kdr 03/09 18:57 Order name: CBC with Automated Diff; Complete Time: 20:03 EDMS 03/09 19:05 Order name: Basic Metabolic Panel; Complete Time: 20:03 EDMS 03/09 17:46 Order name: RAD; Complete Time: 17:56 EDMS 03/09 17:46 Order name: RAD; Complete Time: 17:56 EDMS 03/09 18:25 Order name: CT Abd/Pelvis - IV Contrast Only [facility] 03/09 19:58 Order name: CT; Complete Time: 20:03 EDMS 03/09 19:58 Order name: CT; Complete Time: 20:03 EDMS 03/09 22:48 Order name: Extremity Venous [facility] 03/09 18:55 Order name: IV Start; Complete Time: 18:55 tw2 Administered Medications: 17:07 Drug: fentaNYL (PF) 50 mcg Route: IM; Site: right deltoid; tw2 18:55 Follow up: Response: No adverse reaction; Marked relief of symptoms; Pain is decreased; tl1 RASS: Alert and Calm (0) 18:53 Drug: NS 0.9% 500 ml Route: IV; Rate: bolus; Site: right antecubital; tw2 19:00 Follow up: IV Status: Completed infusion; IV Intake: 500ml tl1 21:30 Drug: Dilaudid 0.5 mg {Note: RASC 1.} Route: IVP; Infused Over: 2 mins; Site: right tl1 antecubital; 23:35 Follow up: Response: No adverse reaction; Marked relief of symptoms; Pain is decreased; tl1 RASS: Alert and Calm (0) Disposition: 03/10 08:58 Co-signature as Attending Physician, Lv Mondragon MD I agree with the assessment and kdr plan of care. Disposition: 03/09/19 21:26 Hospitalization ordered by Jennifer Young for Observation. Preliminary diagnosis are Hematoma Left gluteal muscle, Intractable Pain. - Bed requested for Telemetry/MedSurg (observation). - Status is Observation. tl1 - Condition is Stable. - Problem is new. - Symptoms are unchanged. UTI on Admission? No Signatures: Dispatcher [employer] EDIA Melanie Carrillo RN RN Lv Mondragon MD MD [facility] Dax Zavaleta PA PA jr8 Germaine Rojo RN RN tl1 Lalitha Hansen RN RN tw2 Elzbieta Troncoso ar5 Corrections: (The following items were deleted from the chart) 03/09 18:06 16:55 Splint ordered. kdr 20:27 17:59 03/09/2019 17:59 Discharged to Home. Impression: Pain in left hip; Multiple jr8 non-displaced fractures to the right hand - subacute. Condition is Stable. Forms are Medication Reconciliation Form, Thank You Letter, Antibiotic Education, Prescription Opioid Use. Follow up: Private Physician; When: 2 - 3 days; Reason: If symptoms return, Further diagnostic work-up, Recheck today's complaints, Continuance of care, Re-evaluation by your physician. Problem is new. Symptoms have improved. kdr 21:25 20:27 03/09/2019 17:59 Discharged to Home. Impression: Pain in left hip; Multiple jr8 non-displaced fractures to the right hand - subacute; Hematom Left Gluteus . Condition is Stable. Discharge Instructions: Musculoskeletal Pain, Joint Pain, [id number]. Forms are Medication Reconciliation Form, Thank You Letter. Follow up: Private Physician; When: 2 - 3 days; Reason: If symptoms return, Further diagnostic work-up, Recheck today's complaints, Continuance of care, Re-evaluation by your physician. Problem is new. Symptoms have improved. jr8 : 21:26 Hospitalization Ordered by Jennifer Young MD for Observation. Preliminary jr8 diagnosis is Hematoma Left gluteal muscle. Bed requested for Telemetry/MedSurg (observation). Status is Observation. Condition is Stable. Problem is new. Symptoms are unchanged. UTI on Admission? No. jr8 22:45 21:26 03/09/2019 21:26 Hospitalization Ordered by Jennifer Young MD for Observation. ar5 Preliminary diagnosis is Hematoma Left gluteal muscle; Intractable Pain. Bed requested for Telemetry/MedSurg (observation). Status is Observation. Condition is Stable. Problem is new. Symptoms are unchanged. UTI on Admission? No. jr8 03/10 00:02 03/09 22:45 03/09/2019 21:26 Hospitalization Ordered by Jennifer Young MD for tl1 Observation. Preliminary diagnosis is Hematoma Left gluteal muscle; Intractable Pain. Bed requested for Telemetry/MedSurg (observation). Status is Observation. Condition is Stable. Problem is new. Symptoms are unchanged. UTI on Admission? No. ar5
[2019-03-09 18:52] LABS: Absolute Lymphocytes (CBC) 2.7 K/uL (0.7-4.9); Basophils % 0.9 % (0-1.3); Hematocrit 34.8 % (39.6-49.0); MPV 7.4 fL (7.6-11.3); RBC Red Blood Cell Count 3.75 M/uL (4.33-5.43)
[2019-03-09] MEDS ORDERED: NA CHLORIDE 0.9% 500 ML ONE (18:52)
[2019-03-09 19:04] LABS: Potassium 3.3 mmol/L (3.5-5.1)
--- NOTE | 2019-03-09 19:52 | RAD REPORT ---
EXAM DESCRIPTION: CT - Hip Left Wo Con - 03/09/2019 7:29 pm CLINICAL HISTORY: Left hip pain status post fall COMPARISON: March 09, 2019 x-ray, 2019 x-ray TECHNIQUE: Computed axial tomography left hip obtained with coronal and sagittal reconstruction. All CT scans are performed using dose optimization technique as appropriate and may include automated exposure control or mA/KV adjustment according to patient size. FINDINGS: Osteoporosis. No fracture or dislocation is seen 10 centimeters hematoma within the left gluteus muscle IMPRESSION: 10 centimeters hematoma within the left gluteus muscle
--- NOTE | 2019-03-09 19:52 | RAD REPORT ---
EXAM DESCRIPTION: CT - Abdomen Pelvis W Contrast - 03/09/2019 7:30 pm CLINICAL HISTORY: Abdominal pain COMPARISON: none. TECHNIQUE: Computed axial tomography of the abdomen pelvis was obtained. 100 cc Isovue-300 was admin istered intravenously. Oral contrast was not requested which limits evaluation of bowel. All CT scans are performed using dose optimization technique as appropriate and may include automated exposure control or mA/KV adjustment according to patient size. FINDINGS: Cholecystectomy. Splenectomy. Left nephrectomy The liver, adrenal appear unremarkable. Right renal cysts. Filter within the inferior vena cava. Some of the limbs protrude up to 10 millimeters outside of the wall There is no evidence of diverticulitis. A large amount of stool within the colon. Colon measures up t o 6.7 centimeters in width Small inguinal hernias contain fat. A 10 centimeter left gluteus hematoma IMPRESSION: A 10 centimeter left gluteus hematoma
[2019-03-09] MEDS ORDERED: HYDROMORPHONE HCL 0.5 MG/0.5 ML INJ ONE (21:29)
[2019-03-09] MEDS ORDERED: ACETAMINOPHEN 500 MG TAB PO PRN (22:37)
[2019-03-09] MEDS ORDERED: MORPHINE 4 MG/ML SYR IV PRN (22:37)
[2019-03-09] MEDS ORDERED: ONDANSETRON 4 MG/2 ML VIAL IV PRN (22:37)
[2019-03-10 00:47] LABS: Absolute Lymphocytes (CBC) 2.1 K/uL (0.7-4.9); Basophils % 0.4 % (0-1.3); Hematocrit 33.5 % (39.6-49.0); Lymphocytes % 21.4 % (15.3-44.8); MPV 7.7 fL (7.6-11.3)
[2019-03-10] MEDS: NA CHLORIDE 0.9% 1,000 ML IV SCH ×3 (01:00→14:20)
[2019-03-10 01:05] LABS: Protime INR 1.39
[2019-03-10] MEDS: FUROSEMIDE 20 MG TABLET PO SCH ×2 (06:00→17:06)
--- NOTE | 2019-03-10 08:09 | P.HP ---
Certification for Inpatient Patient admitted to: Inpatient With expected LOS: >2 Midnights Patient will require the following post-hospital care: None Practitioner: I am a practitioner with admitting privileges, knowledge of patient current condition, hospital course, and medical plan of care. Services: Services provided to patient in accordance with Admission requirements found in Title 42 Section 412.3 of the Code of Federal Regulations Patient History Date of Service: 03/10/19 Reason for admission: Status post fall History of Present Illness: Patient is a 73-year-old gentleman who comes into the hospital with complaints of left leg weakness. He states his left leg is weaker on an off for the last few years. However, he has not fallen in over a year. If he said he felt twice on 2 different occasions and that brought into the emergency room for further evaluation. He denies having a syncopal event. He states his left leg just gave out on him. The was brought into the emergency room and his initial workup was negative. However, a CT scan revealed that he had a 10cm hematoma within the left gluteus muscle. Patient will be admitted to the hospital and will monitor him closely as he has a coagulopathy from being on anti coagulation. Will monitor H&H serially. Will get physical therapy evaluation. He will have significant pain in that left hip because of the hematoma for quite a while. He has had a high risk of falling once again. She may need nursing home placement. Will get physical therapy evaluation to further assess the need for further rehab treatment. Allergies No Known Drug Allergies Allergy (Verified 03/10/19 00:25) Unknown Home Medications: Atorvastatin Calcium [Lipitor] 40 mg PO BEDTIME 06/06/15 Oxymorphone HCl [Opana] 5 mg PO BID 06/06/15 Apixaban [Eliquis] 5 mg PO BID 03/10/19 Furosemide 40 mg PO BID 03/10/19 Metoprolol Succinate [Toprol Xl] 50 mg PO TID 03/10/19 Morphine *Extended Release* [MS Contin*] 60 mg PO DAILY 03/10/19 Morphine Sulfate [Ms Contin] 100 mg PO DAILY 03/10/19 - Past Medical/Surgical History Has patient received pneumonia vaccine in the past: No Diabetic: Yes -: HTN -: TIA -: NIDDM -: Renal Failure -: Head injury -: Cholecystectomy -: L kidney removal -: Spleenectomy -: Brain sx -: pacemaker sx -: portion of pancreas removed - Family History Father Medical History: Cancer Notes: lung cancer - Social History Smoking Status: Never smoker Alcohol use: No CD- Drugs: No Caffeine use: Yes Place of Residence: Home Review of Systems 10-point ROS is otherwise unremarkable Physical Examination - Vital Signs Temperature: 97.4 F Blood Pressure: 97/51 Pulse: 78 Respirations: 16 Pulse Ox (%): 93 - Physical Exam General: Alert, In no apparent distress, Oriented x3 HEENT: Atraumatic, PERRLA, Mucous membr. moist/pink, EOMI, Sclerae nonicteric Neck: Supple, 2+ carotid pulse no bruit, No LAD, Without JVD or thyroid abnormality Respiratory: Clear to auscultation bilaterally, Normal air movement Cardiovascular: Regular rate/rhythm, Normal S1 S2, No murmurs Gastrointestinal: Normal bowel sounds, Soft and benign, Non-distended, No tenderness Musculoskeletal: Swelling, Erythema, Tenderness Integumentary: No rashes, No breakdown, No significant lesion Neurological: Normal speech, Normal tone, Sensation intact, Cranial nerves 3-12 intact, Normal affect, Abnormal gait, Abnormal strength Lymphatics: No axilla or inguinal lymphadenopathy - Studies Laboratory Data (last 24 hrs) 03/09/19 18:44: Sodium 144, Potassium 3.3 L, BUN 22 H, Creatinine 1.10, Glucose 116 H 03/09/19 18:44: WBC 10.7, Hgb 11.8 L, Hct 34.8 L, Plt Count 337 Assessment & Plan - Problems (Diagnosis) (1) Ataxic gait Current Visit: Yes Status: Acute (2) Fall Current Visit: Yes Status: Acute Qualifiers: Encounter type: initial encounter Qualified Code(s): W19.XXXA - Unspecified fall, initial encounter (3) Hip hematoma, left Current Visit: Yes Status: Acute (4) Coagulopathy Current Visit: Yes Status: Acute (5) Generalized weakness Current Visit: Yes Status: Acute (6) Diabetes mellitus Onset Date: 06/08/15 Current Visit: No Status: Acute Qualifiers: Diabetes mellitus type: type 2 (7) Tachycardia Onset Date: 06/08/15 Current Visit: No Status: Acute - Plan Plan: 1. Continue with pain control 2. Physical therapy evaluation 3. Serial H&H to make sure patient's hemoglobin is not dropping as he is on Xarelto and anti-platelet therapy 4. Hold anti coagulation at this time 5. Monitor renal function closely 6. Monitor dietary intake 7. Out of bed with assistance 8. GI and DVT prophylaxis - Advance Directives Does patient have a Living Will: No Does patient have a Durable POA for Healthcare: Yes - Code Status/Comfort Care Code Status Assessed: Yes Code Status: Full Code Critical Care: No Time Spent Managing PTS Care (In Minutes): 45
[2019-03-10] MEDS: MORPHINE *EXTENDED RELEASE* 60 MG TAB PO SCH ×2 (09:00→12:17)
[2019-03-10] MEDS ORDERED: POTASSIUM CL SA 10 MEQ TAB PO ONE ×2 (09:00→17:00)
[2019-03-10] MEDS ORDERED: METOPROLOL XL 50 MG TAB PO SCH (09:00)
[2019-03-10] MEDS: METOPROLOL XL 50 MG TAB PO SCH ×3 (10:13→20:54)
[2019-03-10 11:36] LABS: Absolute Lymphocytes (CBC) 2.1 K/uL (0.7-4.9); Basophils % 0.3 % (0-1.3); Hematocrit 31.6 % (39.6-49.0); Lymphocytes % 21.4 % (15.3-44.8); MPV 8.1 fL (7.6-11.3)
--- NOTE | 2019-03-10 11:41 | RAD REPORT ---
EXAM DESCRIPTION: US - Extremity Venous Uni Ltd - 03/09/2019 11:35 pm CLINICAL HISTORY: PAIN Leg swelling and edema. COMPARISON: EXT VENOUS W COMPRESSION SHELLEY dated 06/06/2015 FINDINGS: Left lower extremity venous system was interrogated with Doppler technique. Normal flow, c ompressibility and augmentation was noted. There is no DVT present. IMPRESSION: No evidence of left lower extremity deep venous thrombosis.
[2019-03-10 11:58] LABS: Albumin 2.7 g/dL (3.4-5.0); Bilirubin Total 1.4 mg/dL (0.2-1.0); Magnesium 2.4 mg/dL (1.8-2.4); Phosphorus 2.5 mg/dL (2.5-4.9); Potassium 3.7 mmol/L (3.5-5.1); Protein, Total 5.9 g/dL (6.4-8.2)
[2019-03-10] MEDS ORDERED: GLUCAGON 1 MG/VIAL IM PRN (12:29)
[2019-03-10] MEDS ORDERED: D50W 25 GM/50 ML SYRINGE IV PRN (12:29)
[2019-03-10] MEDS ORDERED: HOME MED 1 EA UNK (Meclizine Hcl [Meclizine Hcl] 25 MG) PO SCH (15:30)
[2019-03-10] MEDS ORDERED: MECLIZINE HCL 12.5 MG TAB PO PRN (16:02)
[2019-03-10] MEDS ORDERED: INSULIN -REGULAR HUMAN 50 UNIT/0.5 ML ML SQ SCH (16:30)
[2019-03-10] MEDS ORDERED: INSULIN ASPART 5 UNIT SQ SCH (16:30)
[2019-03-10] MEDS ORDERED: PNEUMOCOCCAL VACCINE 0.5 ML IMVAC ONE (17:00)
[2019-03-10] MEDS: INSULIN LISPRO 100 UNIT/1 ML SQ SCH (17:03)
[2019-03-10 19:57] LABS: Urine Appearance CLEAR; Urine Bilirubin NEGATIVE (NEG); Urine Blood NEGATIVE (NEG); Urine Color DK YELLOW; Urine Glucose NEGATIVE (NEG); Urine Protein NEGATIVE (NEG); Urine Specific Gravity 1.025 (1.005-1.030)
[2019-03-10 20:10] LABS: Urine Microscopic Reflex NO UMIC
[2019-03-10] MEDS: MELATONIN 5 MG TABLET PO SCH (20:54)
[2019-03-10] MEDS: ATORVASTATIN 40 MG TAB PO SCH (20:54)
[2019-03-10] MEDS: INSULIN GLARGINE 100 UNITS/ML SQ SCH (20:55)
[2019-03-10] MEDS: COENZYME Q10- 200 MG CAP PO SCH (20:55)
[2019-03-10] MEDS ORDERED: INSULIN DETEMIR 13 UNIT SQ SCH (21:00)
[2019-03-10] MEDS ORDERED: UBIDECARENONE 200 MG PO SCH (21:00)
[2019-03-11] MEDS: NA CHLORIDE 0.9% 1,000 ML IV SCH ×2 (03:10→18:30)
[2019-03-11] MEDS: FUROSEMIDE 20 MG TABLET PO SCH ×2 (05:40→18:29)
[2019-03-11 06:49] VITALS: BMI 33.7
[2019-03-11 07:56] LABS: Potassium 3.4 mmol/L (3.5-5.1)
[2019-03-11] MEDS: INSULIN LISPRO 100 UNIT/1 ML SQ SCH ×3 (08:02→17:17)
[2019-03-11] MEDS: DOCOSAHEXANOIC AC/EPA 1000 MG PO SCH (08:03)
[2019-03-11] MEDS: COENZYME Q10- 200 MG CAP PO SCH ×2 (08:03→22:34)
[2019-03-11] MEDS: DOCUSATE NA 100 MG CAP PO SCH (08:03)
[2019-03-11] MEDS: TAMSULOSIN 0.4 MG SR CAP PO SCH (08:04)
[2019-03-11] MEDS: ASCORBIC ACID 500 MG TABLET PO SCH (08:05)
[2019-03-11] MEDS: METOPROLOL XL 50 MG TAB PO SCH ×3 (08:05→22:33)
[2019-03-11] MEDS: MORPHINE SULFATE 100 MG PO SCH (08:08)
[2019-03-11] MEDS: PRASTERONE 50 MG PO SCH (08:08)
[2019-03-11] MEDS ORDERED: POTASSIUM CL SA 10 MEQ TAB PO ONE ×2 (09:00→21:00)
[2019-03-11] MEDS ORDERED: ASCORBIC ACID 2000 MG PO SCH (09:00)
--- NOTE | 2019-03-11 16:06 | P.PN ---
Subjective Date of Service: 03/11/19 Chief Complaint: Status post fall Patient seen and examined at bedside with RN. Chart reviewed. Case discussed with family at bedside. Patient doing much better this morning sitting up on a chair eating breakfast. No other complaints to offer. Review of Systems 10-point ROS is otherwise unremarkable Physical Examination - Vital Signs Temperature: 98.9 F Blood Pressure: 112/62 Pulse: 76 Respirations: 18 Pulse Ox (%): 96 - Physical Exam General: Alert, In no apparent distress HEENT: Atraumatic, PERRLA, EOMI Neck: Supple, JVD not distended Respiratory: Clear to auscultation bilaterally, Normal air movement Cardiovascular: Regular rate/rhythm, Normal S1 S2 Gastrointestinal: Normal bowel sounds, No tenderness Musculoskeletal: No tenderness Integumentary: No rashes Neurological: Normal speech, Normal tone, Normal affect Lymphatics: No axilla or inguinal lymphadenopathy - Studies Medications List Reviewed: Yes Assessment And Plan - Current Problems (Diagnosis) (1) Fall Current Visit: Yes Status: Acute Plan: Patient with fall most likely secondary to ataxic gait -fall precautions given -PTOT consulted Qualifiers: Encounter type: initial encounter Qualified Code(s): W19.XXXA - Unspecified fall, initial encounter (2) Hip hematoma, left Current Visit: Yes Status: Acute Plan: Left gluteus muscle hematoma noted patient's hematoma may be likely secondary to chronic fall -PTOT is consulted -hemoglobin is stable at this time -no surgical intervention needed at this time -patient is going to be most likely discharged home in next 24-48 hr once he is able to work with physical therapy and trained for stairs Qualifiers: Encounter type: subsequent encounter Qualified Code(s): S70.02XD - Contusion of left hip, subsequent encounter (3) Diabetes mellitus Onset Date: 06/08/15 Current Visit: No Status: Acute Qualifiers: Diabetes mellitus type: type 2 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
[2019-03-11] MEDS ORDERED: MORPHINE *EXTENDED RELEASE* 60 MG TAB PO SCH (21:00)
[2019-03-11] MEDS: INSULIN GLARGINE 100 UNITS/ML SQ SCH (22:34)
[2019-03-11] MEDS: MELATONIN 5 MG TABLET PO SCH (22:34)
[2019-03-11] MEDS: ATORVASTATIN 40 MG TAB PO SCH (22:34)
[2019-03-12 00:26] VITALS: O2SAT 97
[2019-03-12] MEDS: FUROSEMIDE 20 MG TABLET PO SCH (05:18)
[2019-03-12 05:19] VITALS: BP 106/60
[2019-03-12 06:03] LABS: Potassium 3.8 mmol/L (3.5-5.1)
[2019-03-12] MEDS: INSULIN LISPRO 100 UNIT/1 ML SQ SCH ×2 (08:39→12:19)
[2019-03-12] MEDS: ASCORBIC ACID 500 MG TABLET PO SCH (08:40)
[2019-03-12] MEDS: TAMSULOSIN 0.4 MG SR CAP PO SCH (08:40)
[2019-03-12] MEDS: METOPROLOL XL 50 MG TAB PO SCH (08:40)
[2019-03-12] MEDS: DOCOSAHEXANOIC AC/EPA 1000 MG PO SCH (08:40)
[2019-03-12] MEDS: DOCUSATE NA 100 MG CAP PO SCH (08:40)
[2019-03-12] MEDS: NA CHLORIDE 0.9% 1,000 ML IV SCH (08:41)
[2019-03-12] MEDS: PRASTERONE 50 MG PO SCH (08:41)
[2019-03-12] MEDS: MORPHINE SULFATE 100 MG PO SCH (08:41)
[2019-03-12 08:47] VITALS: TEMP 97.4
[2019-03-12] MEDS ORDERED: POTASSIUM 25 MEQ EFFERV TAB PO ONE (09:00)
[2019-03-12] MEDS: COENZYME Q10- 200 MG CAP PO SCH (09:00)
--- NOTE | 2019-03-12 14:47 | P.DS ---
Admission Date: 03/09/19 Discharge Date: 03/12/19 Disposition: ROUTINE DISCHARGE Discharge Condition: GOOD Reason for Admission: Status post fall - Problems (1) Fall Current Visit: Yes Status: Acute Qualifiers: Encounter type: initial encounter Qualified Code(s): W19.XXXA - Unspecified fall, initial encounter (2) Hip hematoma, left Current Visit: Yes Status: Acute Qualifiers: Encounter type: subsequent encounter Qualified Code(s): S70.02XD - Contusion of left hip, subsequent encounter (3) Diabetes mellitus Onset Date: 06/08/15 Current Visit: No Status: Acute Qualifiers: Diabetes mellitus type: type 2 Diabetes mellitus 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 Hospital Course: Overall pt remained stable while in the hospital Was initially admitted to the hospital for Fall and was found to have 10cm stable Gluteal Muscle Hematoma which was most likely 2.2 to Fall and pt being on anticoagulation. Hgb was monitoring closely. Pt hgb remained stable while here in the hospital. Pt was seen by PT here as well who reccs SNF vs HH. SNF was denied due to not meeting criteria. pt was thus DC home under stable condition. Was asked to F.u with PCP in 1 to 2 days post discharge Vital Signs/Physical Exam: Temp Pulse Resp BP Pulse Ox 97.4 F 77 16 106/60 95 03/12/19 08:00 03/12/19 08:40 03/12/19 08:00 03/12/19 08:40 03/12/19 08:00 General: Alert, In no apparent distress HEENT: Atraumatic, PERRLA, EOMI Neck: Supple, JVD not distended Respiratory: Clear to auscultation bilaterally, Normal air movement Cardiovascular: Regular rate/rhythm, Normal S1 S2 Gastrointestinal: Normal bowel sounds, No tenderness Musculoskeletal: No tenderness Integumentary: No rashes Neurological: Normal speech, Normal tone, Normal affect Lymphatics: No axilla or inguinal lymphadenopathy Laboratory Data at Discharge: WBC 9.9 K/uL (4.3-10.9) 03/10/19 11:15 Hgb 11.0 g/dL (13.6-17.9) L 03/10/19 11:15 Hct 31.6 % (39.6-49.0) L 03/10/19 11:15 Plt Count 309 K/uL (152-406) 03/10/19 11:15 PT 16.2 SECONDS (9.5-12.5) H 03/10/19 00:27 INR 1.39 03/10/19 00:27 APTT 36.0 SECONDS (24.3-36.9) 03/10/19 00:27 Sodium 143 mmol/L (136-145) 03/12/19 05:23 Potassium 3.8 mmol/L (3.5-5.1) 03/12/19 05:23 BUN 19 mg/dL (7-18) H 03/12/19 05:23 Creatinine 1.08 mg/dL (0.55-1.3) 03/12/19 05:23 Glucose 103 mg/dL (74-106) 03/12/19 05:23 Phosphorus 2.5 mg/dL (2.5-4.9) 03/10/19 11:15 Magnesium 2.4 mg/dL (1.8-2.4) 03/10/19 11:15 Total Bilirubin 1.4 mg/dL (0.2-1.0) H 03/10/19 11:15 AST 16 U/L (15-37) 03/10/19 11:15 ALT 15 U/L (12-78) 03/10/19 11:15 Alkaline Phosphatase 96 U/L (45-117) 03/10/19 11:15 Home Medications: Atorvastatin Calcium [Lipitor] 40 mg PO BEDTIME 06/06/15 Oxymorphone HCl [Opana] 5 mg PO SEECOM 06/06/15 Apixaban [Eliquis] 5 mg PO BID 03/10/19 Ascorbic Acid [Vitamin C] 2,000 mg PO DAILY 03/10/19 Docosahexanoic AC/Epa [Fish Oil 1,000 MG*] 3,000 mg PO DAILY 03/10/19 Docusate Sodium 100 mg PO DAILY 03/10/19 Furosemide 40 mg PO BID 03/10/19 Insulin Aspart [Novolog] 5 unit SQ AC 03/10/19 Insulin Detemir [Levemir] 13 units SQ BEDTIME 03/10/19 Meclizine HCl 25 mg PO PRN 03/10/19 Melatonin 10 mg PO BEDTIME 03/10/19 Metoprolol Succinate [Toprol Xl*] 50 mg PO TID 03/10/19 Morphine *Extended Release* [MS Contin*] 60 mg PO BEDTIME 03/10/19 Morphine Sulfate [Ms Contin] 100 mg PO DAILY 03/10/19 Niacin (Inositol Niacinate) [Niacin 500 mg Capsule] 500 mg PO DAILY 03/10/19 Prasterone (Dhea) [Dhea 25] 50 mg PO DAILY 03/10/19 Tamsulosin HCl 0.4 mg PO DAILY 03/10/19 Ubidecarenone [Co Q-10] 200 mg PO BID 03/10/19 Diet: Regular Activity: Ad elia
== END 2019-03-12 14:55 | disposition home health service (06) ==
LOC: ER 16:31 → INTOOBSV 23:43 → 2ND 23:43 → OBSVTOIN 23:43 → INTOOBSV 03-10 02:56 → OBSVTOIN 03-10 02:56
PROVIDERS: ADMIT Hospitalist; ATTEND Family Medicine
DX: S70.02XA Contusion of left hip, initial encounter (principal); R27.0 Ataxia, unspecified; N17.9 Acute kidney failure, unspecified; I10 Essential (primary) hypertension; E11.9 Type 2 diabetes mellitus without complications; R00.0 Tachycardia, unspecified; W19.XXXA Unspecified fall, initial encounter; Z23 Encounter for immunization
CPT/HCPCS: 85025 ×3; 80048 ×3; 36415 ×3; 83735; 82550 ×2; 84100; 84132 ×2; 85610; 82962 ×10; 85730; 81003; 83036; 80053; 73700; 74177; 72170; 73502; 90471; 93971; 90670; 97116 ×7; 97530 ×3; 96372; 96374; 99285; Q9967; J3010; J1170; G0378 ×5; J7030 ×4